=== PATIENT | female | born 1965 | race Caucasian/White ===

== ENCOUNTER → 2017-05-13 | Day surgery (SDC) | payer SELFPAY ==
[~2017-05-13] VITALS: Ht 165.1 cm; Wt 59.4 kg
[~2017-05-13] MED LIST: COZAAR25 M1 PO
--- NOTE | 2017-05-13 12:53 | Operative Report ---
Operative/Inv Procedure Report Surgery Date: 05/13/17 Name of Procedure: Abdominoplasty with lipo flanks Pre-Operative Diagnosis: Lipodystrophy trunk Post-Operative Diagnosis: Same Estimated Blood Loss: 50ml to 100ml Surgeon/Estate Attorney: Tushar Aly MD Anesthesia: general endotracheal tube Operative/Procedure Note Note: The patient was counseled regards to the procedure the alternatives the risks and expected outcomes as relates to her request for surgical intervention to treat abdominal wall laxity with some excess skin she has a small amount of fat in the lateral flank at the waistline. We talked about abdominoplasty with a small amount of liposuction today. She is aware of the risk has no questions regarding the consent forms. She was marked in the standing position with a measuring tape for symmetry. She was shown the areas of would be treated those that would not. She signed informed consent. She was taken to the operating room placed supine on the table. Venodyne boots are placed and general anesthesia was established and intravenous antibiotics were given. The abdomen prepped and draped in usual sterile fashion. Lower incision was deepened first abdominal wall flap was developed after freeing the umbilicus. The patient was put in the semi-Mario's position to assess tension. Once adequate the upper or so the flap was divided and a tunnel was made to the xiphoid. 2 layers of nonabsorbable sutures were placed to repair the diastases from xiphoid to pubis. She was put into semi-Mario's and a 3 layer closure was carried out over a drain. Similarly for the umbilicus. Of note 150 mL using the tumescent technique was removed from each lateral waist region.
== END ==
LOC: STS 03:46
DX: Z41.1 Encounter for cosmetic surgery (principal); E65 Localized adiposity; I10 Essential (primary) hypertension
CPT/HCPCS: J0131; J0171; J0690; J2250; Q9968